=== PATIENT | male | born 1995 | race Caucasian/White ===

== ENCOUNTER 2017-10-13 16:36 | Emergency (ER) | payer BC, SELFPAY ==
[2017-10-13 16:41] VITALS: BP 149/96; PULSE 84; RESP 16; TEMP 36.8; O2SAT 97
--- NOTE | 2017-10-13 16:56 | ED.GENADUL ---
Disposition Clinical Impression: Folliculitis Disposition: HOME Condition: Stable Instructions: Folliculitis (ED) Additional Instructions: Return immediately to the emergency department if you have any new or significant worsening in symptoms including streaking redness up the leg, fever chills, or purulent drainage from the area of infection. Otherwise follow-up with your primary care provider for reassessment in 1 week. Prescriptions: Clindamycin Phosphate [CLINDAMYCIN PHOS 1%] 60 ml TP BID 7 Days #1 lotion Referrals: Dariusz Odonnell [Primary Care Provider] - 1 week (If not improving over the next week please follow-up with your primary care provider for reassessment.) Medical Decision Making - Medical Decision Making Patient presenting to the emergency department for evaluation of possible infection of right lower leg. Patient has a single hair follicle that is inflamed and reddened otherwise is unremarkable. There is no area of significant fluctuance or induration. I feel that this is more folliculitis than actual abscess. Given this patient was placed upon clindamycin twice daily for 1 week and encouraged to return for worsening symptoms otherwise follow-up with his primary care if not improving over the next week. Patient was concerned about a surgery that is coming up in the next couple days and I informed him I did not feel that this small area of affected skin would prohibit his surgery but I did inform him to call the surgeon's office tomorrow morning and inform them of the diagnosis along with treatment. Patient is otherwise nontoxic well in appearance with no systemic symptoms so I feel the patient can be safely discharged for outpatient therapy. After discussion of diagnosis and plan of care with patient patient agreed and stated no further needs, questions, or concerns at this time. History of Present Illness - General Chief complaint: RashLesion Stated complaint: RASH? Time Seen by Provider: 10/13/17 16:56 Source: patient, RN notes reviewed Mode of arrival: ambulatory Limitations: no limitations - History of Present Illness Initial comments: Patient reports for the past 2 days he has noticed a area to his right lower leg that is become reddened. Patient is worried about infection due to a upcoming tonsil surgery and attempted to call his primary care office which they stated that they would not be able to see the patient so patient is coming to the emergency department for evaluation. Patient denies any fever chills, other areas of redness or rash, joint swelling, or other systemic symptoms. Onset/Timin -: days(s) Location: right, lower extremity Consistency: constant Improves with: none Worsens with: none Associated Symptoms: denies other symptoms Treatments Prior to Arrival: none - Related Data Clindamycin Phosphate [CLINDAMYCIN PHOS 1%] 60 ml TP BID 7 Days #1 lotion 10/13/17 Dextroamphetamine/Amphetamine [Adderall Xr 30 mg Capsule] 1 tab-cap PO DAILY #30 tab-cap 10/13/17 Allergies Allergy/AdvReac Type Severity Reaction Status Date / Time No Known Allergies Allergy Unverified 10/13/17 16:45 Review of Systems Constitutional: denies: chills, fever, malaise ENT: denies: throat pain Respiratory: denies: cough, shortness of breath Cardiovascular: denies: chest pain Musculoskeletal: denies: joint swelling Skin: as per HPI, other (Area of redness on right lower leg as stated) Comment: All other systems reviewed and negative Past Medical History - Past Medical History Medical history: no medical history Attention deficit disorder Surgical history: non-contributory Family history: other (Epilepsy) - Social History Smoking status: current everyday smoker Alcohol use: occasionally Drug use: marijuana Living Situation: lives with family General Exam - General Limitations: no limitations General appearance: alert, in no apparent distress - Respiratory Respiratory exam: Absent: respiratory distress - Extremities Exam Extremities exam: Present: full ROM, normal capillary refill. Absent: joint swelling - Neurological Exam Neurological exam: Present: alert, normal gait. Absent: altered - Skin Skin exam: Present: warm, dry, erythema (Patient has a area of erythema with very mild induration noted on the right lateral lower leg with central area of appearance of a hair follicle.) Course Vital Signs - 24 hr 10/13/17 16:41 Temperature 36.8 C Pulse 84 Respiratory 16 Rate Blood Pressure 149/96 Pulse Oximetry 97
== END 2017-10-13 17:02 | disposition home or self-care (01) ==
PROVIDERS: Emergency Provider Physician Assistant; PCP Family Medicine
DX: L73.9 Follicular disorder, unspecified (principal)
CPT/HCPCS: 99283

== ENCOUNTER 2018-02-05 19:40 | Emergency (ER) | payer BC, SELFPAY ==
[2018-02-05 19:44] VITALS: BP 150/110; PULSE 102; RESP 16; TEMP 36.7; O2SAT 103
[2018-02-05 20:01] VITALS: BP 145/86; PULSE 89; PULSE 99; RESP 14; O2SAT 97
--- NOTE | 2018-02-05 20:01 | ED.GENADUL_ITS ---
Discharge Plan Disposition Patient Disposition: HOME Condition: Good Discharge Details Chief Complaint: Headache Clinical Impression: Headache, Syncope Primary Care Provider: Dariusz Odonnell. ED Provider: Oswaldo Kurtz Discharge Instructions Instructions: Syncope (ED), General Headache (ED) Additional Instructions: Rest and take it easy over the weekend. Drink plenty of fluids. Contact primary care for follow-up next week. Return to the emergency department if you develop severe headache, neurologic changes, confusion, fever, further fainting, chest pain, shortness of breath. Referrals: Dariusz Odonnell. [Primary Care Provider] - Medical Decision Making Patient presenting with headache as well as syncope. He has had both previously. Headache is not the worst headache of his life. He has no neurologic symptoms otherwise. He has no fever or stiff neck. He has no chest pain or shortness of breath. He reports being seen here last year for syncope. I have reviewed that note. It was felt to be related to orthostatic hypotension from him limiting food and fluid intake while working out. That has not been the case this time around. EKG from triage is sinus rhythm at 88 with normal intervals and axis. There is normal ST segments. There is no prolonged QT or delta waves. His headache is not the worst headache of his life. He gets them quite frequently. He has not ever had a CAT scan despite onset of headaches a few years ago. We will proceed to get one tonight. However, I do not feel that he needs a lumbar puncture for subarachnoid hemorrhage despite the syncopal event. He is neurologically intact. He does not describe the headache is severe. He has had similar headaches many times in the past. In regards to the syncope his EKG is fine. Will check laboratory studies including his electrolytes. We will give a liter bolus. We will give Reglan and Benadryl for the headache. He does have primary care that he will be referred to for further evaluation of both syncope and headache. Patient's head CT is unremarkable. Laboratory studies unremarkable other than potassium 3.2. I do not think that had anything to do with his syncope. Will replace his potassium orally. He no longer has a headache status post fluids, Reglan, Benadryl. We did discuss possibility of subarachnoid hemorrhage but the unlikelihood of this being the case. He states that he has had way worse headaches than the headache he had tonight. We will have him follow-up with his primary care physician next week. Return to ED for severe headache, fever, neurologic changes, further syncope, other concerns. Medical Records Medical records reviewed: Yes I reviewed the patient's medical records. Lab Data Lab results reviewed: Yes I reviewed the patient's lab results. ECG Data Attestation: I personally reviewed and interpreted this ECG (s) as follows: Interpretation: Sinus rhythm at 88. Normal intervals and axis. Normal QT. No acute ST changes. HPI General Mode of arrival: ambulatory . Date/Time Provider Initiated Documentation: 02/05/18 19:58 . Limitations to Documentation: no limitations . Information obtained by: patient . HPI Narrative: Patient presents to ED with complaint of headache. Patient reports that he has had headaches previously. In fact, he gets them probably a few times a week. He has had headaches worse than this. He came in tonight because he passed out at home. This also is not new. He has passed out previously at least 3 times. He has not had the headaches or the syncope ever really worked up. He was seen here last year when he had a syncopal event. Currently, denies fevers or stiff neck. He has not been ill. He has no chest pain or shortness of breath. He has no neurologic symptoms. He states that after he passed out he got up and drove himself here. Does not really recall driving here very well but was able to do it without difficulty. He has no photophobia or phonophobia. He describes the headache at this time is generalized pressure. He does develop throbbing headaches as well. He has had a headache now on and off for a couple of days. He has mild nausea but no vomiting. He denies injury. He does have a primary care physician but is never seen him to discuss his syncope or his headaches. Related Data Allergies Allergy/AdvReac Type Severity Reaction Status Date / Time No Known Allergies Allergy Unverified 02/05/18 19:48 General Stated Complaint: Headache DARCY: 3 Review of Systems Constitutional Denies chills, Denies fatigue, Denies fever(s), Reports headache(s), Denies malaise and Denies weakness Eyes Denies blurry vision, Denies change in vision, Denies diplopia, Denies eye pain and Denies photophobia ENT Denies vertigo, Denies dizziness, Denies otalgia, Denies facial pain, Reports headache(s), Denies neck pain and Denies sore throat Cardiovascular Denies chest pain at rest, Denies chest pain with activity, Denies diaphoresis, Reports syncope, Denies rapid heart rate, Denies pedal edema, Denies edema, Denies leg edema, Denies dyspnea and Denies dyspnea on exertion Respiratory Denies cough, Denies dyspnea and Denies dyspnea on exertion Gastrointestinal Denies abdominal pain, Denies diarrhea, Reports nausea and Denies vomiting Genitourinary Denies hematuria and Denies flank pain Musculoskeletal Denies abnormal gait, Denies back pain, Denies myalgias, Denies arthralgias, Denies neck pain, Denies numbness and Denies tingling Integumentary/Breasts Denies rash and Denies wounds Neurologic Denies abnormal movements, Denies abnormal speech, Denies abnormal gait, Denies confusion, Denies vertigo, Denies dizziness, Reports syncope, Reports headache(s ), Denies focal weakness, Denies numbness, Denies tingling, Denies paresthesias and Denies weakness Psychiatric Denies confusion Endocrine Denies fatigue PFSH BEHAVIORAL PROBLEMS/IEP DEPRESSION/ANXIETY Family History Mother Essential hypertension Father Epilepsy Essential hypertension Hyperlipidemia Sister Thyroid disease Sister Depression Sister Asthma Sister No problems noted. FAMILY HISTORY Essential hypertension Depression ADHD (attention deficit hyperactivity disorder) Nasal septoplasty (10/15/17) Family History Mother Essential hypertension Father Epilepsy Essential hypertension Hyperlipidemia Sister Thyroid disease Sister Depression Sister Asthma Sister No problems noted. FAMILY HISTORY Essential hypertension Depression ADHD (attention deficit hyperactivity disorder) Medical History BEHAVIORAL PROBLEMS/IEP DEPRESSION/ANXIETY Social History Smoking/Tobacco Use Status: Former Tobacco Use Surgical History Nasal septoplasty (10/15/17) Social History Smoking/Tobacco Use Status: Current every day substance use type: marijuana Exam Const General: cooperative, comfortable and no acute distress Orientation: alert and oriented x3 [facility] Head: normocephalic and atraumatic Mouth: moist mucous membranes Eyes Conjunctivae: conjunctivae normal Pupils: PERRL EOM: EOM intact bilaterally Neck Neck: full ROM, no lymphadenopathy, trachea midline and supple Resp Effort & Inspection: normal respiratory effort Auscultation: clear to auscultation bilaterally Cardio Rate: regular rate Rhythm: regular rhythm Heart Sounds: S1 normal and S2 normal Pulses: normal peripheral pulses GI Inspection: non-distended Palpation: soft, not firm, no guarding and nontender Skin General skin exam: no erythema Rashes: no rashes Trauma: no lacerations or abrasions Other: warm and dry Neuro General: alert, oriented x3, no focal motor deficits and CN's II-XI intact bilaterally Cognition: normal cognition Speech: speech normal Sensory Exam: no sensory deficits noted Extrem General: normal to inspection, full ROM and no clubbing, cyanosis or edema Psych Appearance: grossly normal Mental Status: mental status grossly normal Affect: normal affect Attitude: cooperative Course Vital Signs Temperature 98.1 F 02/05/18 19:44 Pulse 102 H 02/05/18 19:44 Respiratory Rate 16 02/05/18 19:44 Blood Pressure 150/110 H 02/05/18 19:44 Pulse Oximetry 103 H 02/05/18 19:44 Temperature 98.1 F 02/05/18 19:44 Temperature Source Skin 02/05/18 19:44 Pulse 102 H 02/05/18 19:44 Respiratory Rate 16 02/05/18 19:44 Respiratory Effort Non-Labored 02/05/18 19:46 Blood Pressure 150/110 H 02/05/18 19:44 Pulse Oximetry 103 H 02/05/18 19:44 Oxygen Delivery Method Room Air 02/05/18 19:44 Oxygen Flow Rate 0 02/05/18 19:44 Pain Level 5 02/05/18 19:44
--- NOTE | 2018-02-05 20:15 | DI.CT_ITS ---
SYMPTOM/DIAGNOSIS: HEADACHE NONCONTRAST HEAD CT: No intracranial hemorrhage, mass or infarct is seen. There is no evidence of skull fracture. The visualized portions of the sinuses and mastoid air cells appear clear. IMPRESSION: Negative head CT
[2018-02-05 20:16] VITALS: BP 133/86; PULSE 83; PULSE 90; RESP 23; O2SAT 96
[2018-02-05] MEDS: Normal Saline 1,000 ML 1000 ML IV (20:28)
[2018-02-05] MEDS: diphenhydrAMINE 50 MG/ML VIAL 25 MG IVP (20:30)
[2018-02-05] MEDS: Metoclopramide 10 MG/2 ML VIAL IVP (20:30)
[2018-02-05 20:31] VITALS: BP 131/73; PULSE 90; PULSE 96; RESP 22; O2SAT 96
[2018-02-05 20:31] LABS: Abs Immature Grans 0.01 k/cumm (0.0-0.09); Absolute Basophil Count 0.02 k/cumm (0.0-0.2); Absolute Eosinophil Count 0.01 k/cumm (0.0-0.7); Absolute Lymphocyte Count 2.68 k/cumm (1.2-3.4); Absolute Monocyte Count 0.54 k/cumm (0.11-0.7); Absolute Neutrophil Count 4.52 k/cumm (1.2-6.7); Basophils % 0.3; Eosinophils % 0.1; HCT 45.7 % (40.0-50.0); HGB 15.4 g/dL (13.5-17.5); Immature Grans % 0.1; Lymphocytes % 34.4; Mean Corp. HGB Concentration 33.7 g/dL (32.0-36.0); Mean Corpuscular Hemoglobin 27.5 pg (27.0-33.0); Mean Corpuscular Volume 81.8 fL (80-95); Mean Platelet Volume 11.1 fL (8.0-11.0); Monocytes % 6.9; Neutrophils % 58.2; Platelet Count 223 x1000/uL (130-400); RBC 5.59 m/cumm (4.50-6.00); RBC Distribution Width 13.2 % (11.8-14.1); White Blood Cell Count 7.78 k/cumm (4.4-10.8)
[2018-02-05 20:56] LABS: Anion Gap 11.9 mmol/L (3-11); BUN 13 mg/dL (7-18); CO2 27.1 mmol/L (21.0-32.0); CREATININE 1.06 mg/dL (0.70-1.30); Calcium 9.4 mg/dL (8.5-10.1); Chloride 105 mmol/L (98-107); Glucose 102 mg/dL (70-100); Potassium 3.2 mmol/L (3.5-5.1); Sodium 144 mmol/L (136-145)
--- NOTE | 2018-02-05 21:10 | DI.VRAD_ITS ---
EXAM: CT Head Without Contrast EXAM DATE/TIME: 02/05/2018 8:20 PM CLINICAL HISTORY: 22 years old, male; Pain; Headache; Headache not specified TECHNIQUE: Axial computed tomography images of the head/brain without contrast. All CT scans at this facility use at least one of these dose optimization techniques: automated exposure control; mA and/or kV adjustment per patient size (includes targeted exams where dose is matched to clinical indication); or iterative reconstruction. Coronal and sagittal reformatted images were created and reviewed. COMPARISON: No relevant prior studies available. FINDINGS: Brain: No hemorrhage. No significant white matter disease. No edema. Ventricles: No ventriculomegaly. Bones/joints: No acute fracture. Sinuses: Unremarkablel as visualized. No acute sinusitis. Mastoid air cells: Unremarkable as visualized. No mastoid effusion. Soft tissues: Unremarkable. IMPRESSION: No acute focal intracranial lesions. Dictated and Authenticated by: Miles Dao MD. Ordering:MERY BHAGAT MD
[2018-02-05] MEDS: Potassium Chloride 20 MEQ TABCR 40 MEQ PO (21:20)
[2018-02-05 21:23] VITALS: BP 130/80; PULSE 65; RESP 16; O2SAT 97
== END 2018-02-05 21:52 | disposition home or self-care (01) ==
PROVIDERS: Emergency Provider Emergency Medicine; PCP Family Medicine
DX: R51 Headache (principal); R55 Syncope and collapse; E87.6 Hypokalemia; R11.0 Nausea
CPT/HCPCS: 36415; 80048; 93005; 96361; 96374; 96375; 99285; 70450; 83735; 85025; 93010; J1200; J2765

== ENCOUNTER 2018-09-26 11:54 | Emergency (ER) | payer BC, SELFPAY ==
[2018-09-26 12:01] VITALS: BP 163/77; PULSE 85; RESP 16; TEMP 37.1; O2SAT 99
--- NOTE | 2018-09-26 12:26 | W.ED.GENAD ---
Discharge Plan Disposition Patient Disposition: HOME Condition: Stable Discharge Details Chief Complaint: Nk/Back Pain Clinical Impression: Low back pain Primary Care Provider: Dariusz Odonnell ED Provider: Elton Moore Home Meds and New Rx's Prescriptions: New cyclobenzaprine 10 mg tablet 10 mg PO TID PRN (Reason: muscle spasm) Qty: 20 RF: 0 No Action dextroamphetamine-amphetamine [Adderall XR] 20 mg capsule,extended release 24hr 20 mg PO DAILY MDD 1 Qty: 30 RF: 0 dextroamphetamine-amphetamine [Adderall XR] 30 mg capsule,extended release 24hr 30 mg PO QAM MDD 1 cap Qty: 30 RF: 0 Discharge Instructions Instructions: Low Back Strain (ED) Additional Instructions: you can take 1000mg tylenol and 600mg ibuprofen every 6 hours for pain if you take the cyclobenzaprine do not drink alcohol or drive as it can make you drowsy follow up with your primary care provider if symptoms continue in 2 weeks if you have high fevers, weakness, difficulty urinating or severe worsening pain return to the emergency department Stand Alone Forms: Physical Therapy Referral Medical Decision Making 23 yo male who denies chronic medical problems and denies any ivdu who comes in with cc of low back pain for over a week. Denies any falls or trauma. he does do intermittent heavy lifting at work but denies any known injury. Denies fevers, weakness, difficulty urinating. He has pain in right lower back just lateral to midline, has increased pain with bending forward, no saddle anesthesia. Has no findings to suggest cauda equina and no infectious symptoms and no ivdu so unlikely sea. Suspect muscle strain vs spasm vs possible disc herniation. Will have him start muscle relaxers, and see physical therapy and advised to f/u with pcp if not better in 2 weeks and return precautions given Differential Diagnosis strain, muscle spasm, disc herniation HPI General Mode of arrival: ambulatory. Date/Time Provider Initiated Documentation: 09/26/18 11:56. Limitations to Documentation: no limitations. Information obtained by: patient. History of Present Illness 23 year old M presents to the emergency department with the chief complaint of low back pain, described as moderate, Quality is described as stabbing, and is localized to the back. Patient reports no radiation. Patient started experiencing this day(s) (7) and it has been constant. No relieving factors improve symptom(s), No exacerbating factors reported . Patient did receive the following treatments prior to arrival, none Related Data Home Medications Medication Instructions Recorded Confirmed dextroamphetamine-amphetamine ER 20 mg PO DAILY #30 cap MDD 1 08/30/18 09/26/18 20 mg 24hr capsule,extend release dextroamphetamine-amphetamine ER 30 mg PO QAM #30 cap MDD 1 cap 08/30/18 09/26/18 30 mg 24hr capsule,extend release cyclobenzaprine 10 mg PO TID PRN #20 tab 09/26/18 Previous Rx's Medication Instructions Recorded dextroamphetamine-amphetamine ER 20 mg PO DAILY #30 cap MDD 1 08/30/18 20 mg 24hr capsule,extend release dextroamphetamine-amphetamine ER 30 mg PO QAM #30 cap MDD 1 cap 08/30/18 30 mg 24hr capsule,extend release cyclobenzaprine 10 mg PO TID PRN #20 tab 09/26/18 Allergies Allergy/AdvReac Type Severity Reaction Status Date / Time No Known Allergies Allergy Verified 09/26/18 12:04 General Stated Complaint: Nk/Back Pain DARCY: 4 Review of Systems Review of Systems All systems reviewed & are unremarkable except as noted in HPI and below Constitutional Denies chills, Denies fever(s) and Denies weakness Cardiovascular Denies chest pain and Denies dyspnea Respiratory Denies cough and Denies dyspnea Gastrointestinal Denies abdominal pain, Denies nausea and Denies vomiting Integumentary/Breasts Denies rash Neurologic Denies weakness Endocrine Denies heat intolerance [facility] Medical History (Updated 09/01/18 @ 14:46 by Dariusz Odonnell) Attention deficit hyperactivity disorder (ADHD), 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) BEHAVIORAL PROBLEMS/IEP Cluster headache (Chronic 06/18/17) DEPRESSION/ANXIETY Deviated nasal septum (Chronic 08/12/17) Recurrent syncope (Chronic) Surgical History Nasal septoplasty (10/15/17) Social History Smoking/Tobacco Use Status: Current every day Drug use: Occasionally Substance use type: marijuana Do you feel safe in your relationship?: Yes Exam Const General: no acute distress Orientation: alert HENMT Head: normal to inspection Ears: external ears normal General nose exam: external nose normal Mouth: moist mucous membranes Eyes General: appearance normal, both eyes and all related structures Neck Neck: normal visual inspection Resp Effort & Inspection: normal respiratory effort and able to speak in complete sentences Cardio Rate: regular rate Back/Spine/Pelvis Back: no CVA tenderness and No erythema Skin General skin exam: no rashes or lesions noted Neuro General: alert and oriented x3 Extrem General: normal to inspection Psych Mental Status: mental status grossly normal Course Vital Signs Temperature 37.1 C 09/26/18 12:01 Pulse 85 09/26/18 12:01 Respiratory Rate 16 09/26/18 12:01 Blood Pressure 163/77 H 09/26/18 12:01 Pulse Oximetry 99 09/26/18 12:01 Temperature 37.1 C 09/26/18 12:01 Temperature Source Skin 09/26/18 12:01 Pulse 85 09/26/18 12:01 Respiratory Rate 16 09/26/18 12:01 Respiratory Effort Non-Labored 09/26/18 12:01 Blood Pressure 163/77 H 09/26/18 12:01 Blood Pressure Position Sitting 09/26/18 12:01 Pulse Oximetry 99 09/26/18 12:01 Oxygen Delivery Method Room Air 09/26/18 12:01 Oxygen Flow Rate 0 09/26/18 12:01 Pain Level 7 09/26/18 12:01
[2018-09-26 12:30] VITALS: BP 147/60; PULSE 85; RESP 16; TEMP 37.1; O2SAT 99
== END 2018-09-26 12:34 | disposition home or self-care (01) ==
PROVIDERS: Emergency Provider Emergency Medicine; PCP Family Medicine
DX: M54.5 Low back pain (principal)
CPT/HCPCS: 99283

== ENCOUNTER 2018-11-02 17:05 | Emergency (ER) | payer BC, SELFPAY ==
[2018-11-02 17:08] VITALS: BP 154/87; PULSE 84; RESP 18; TEMP 37.1; O2SAT 98
--- NOTE | 2018-11-02 17:20 | ED.GENADUL_ITS ---
Discharge Plan Disposition Patient Disposition: HOME Condition: Stable Discharge Details Chief Complaint: Vascular Clinical Impression: Leg pain, right Primary Care Provider: Dariusz Odonnell ED Provider: Elton Moore Home Meds and New Rx's Prescriptions: Continued dextroamphetamine-amphetamine [Adderall XR] 20 mg capsule,extended release 24hr 20 mg PO DAILY MDD 1 Qty: 30 RF: 0 dextroamphetamine-amphetamine [Adderall XR] 30 mg capsule,extended release 24hr 30 mg PO QAM MDD 1 cap Qty: 30 RF: 0 Discharge Instructions Instructions: Leg Pain (ED) Additional Instructions: call radiology tomorrow to set up an appointment time for your ultrasound follow up if symptoms continue with your primary care provider within 1-2 weeks if you have high fevers, difficulty breathing or inability to urinate return to the emergency department Stand Alone Forms: Work Release Medical Decision Making 23 yo male comes in with right thigh discomfort and shooting sensation down back of the right leg for 2 days. he flew to [place] this weekend and symptoms started yesterday. no difficulty urinating, weakness and has normal gait. Has no leg swelling, calf tenderness, intact distal sensation and no saddle anesthesia and denies fevers or ivdu, no findings on exam or hx to suggest cauda equina or sea at this time. No trauma so do not feel xrays or ct indicated. Has normal vascular exam so doubt dissection. His pain is over the right lateral mid calf without erythema or other signs of infection. I suspect muscle spassm vs strain,sciatica or possible peripheral neuropathy. He is concered for dvt and would like an u/s but unfortunately no tech on at this time. I do not feel he requires transfer to [facility] this done now, and will have him return tomorrow to have it done. I also advised f/u with pcp and return precautions given Differential Diagnosis sciatica, muscle spasm HPI General Mode of arrival: ambulatory . Date/Time Provider Initiated Documentation: 11/02/18 17:07 . Limitations to Documentation: no limitations . Information obtained by: patient . Related Data Home Medications Medication Instructions Recorded Confirmed dextroamphetamine-amphetamine ER 20 mg PO DAILY #30 cap MDD 1 10/04/18 11/02/18 20 mg 24hr capsule,extend release dextroamphetamine-amphetamine ER 30 mg PO QAM #30 cap MDD 1 cap 10/04/18 11/02/18 30 mg 24hr capsule,extend release Previous Rx's Medication Instructions Recorded dextroamphetamine-amphetamine ER 20 mg PO DAILY #30 cap MDD 1 10/04/18 20 mg 24hr capsule,extend release dextroamphetamine-amphetamine ER 30 mg PO QAM #30 cap MDD 1 cap 10/04/18 30 mg 24hr capsule,extend release Allergies Allergy/AdvReac Type Severity Reaction Status Date / Time No Known Allergies Allergy Verified 11/02/18 17:15 General Stated Complaint: Vascular DARCY: 3 Review of Systems Review of Systems All systems reviewed & are unremarkable except as noted in HPI and below Constitutional Denies chills, Denies fever(s) and Denies weakness ENT Denies change in voice Cardiovascular Denies chest pain and Denies dyspnea Respiratory Denies cough and Denies dyspnea Gastrointestinal Denies abdominal pain, Denies nausea and Denies vomiting Neurologic Denies weakness [facility] Medical History (Updated 09/01/18 @ 14:46 by Dariusz Odonnell) Attention deficit hyperactivity disorder (ADHD), 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 well BEHAVIORAL PROBLEMS/IEP Cluster headache (Chronic 06/18/17) DEPRESSION/ANXIETY Deviated nasal septum (Chronic 08/12/17) Recurrent syncope (Chronic) Surgical History Nasal septoplasty (10/15/17) [facility] Social History Smoking/Tobacco Use Status: Current every day Tobacco Type: e-cigarettes Alcohol Intake: current Alcohol Intake frequency: holidays/special occasions only Drug use: Occasionally Substance use type: marijuana Do you feel safe at home: Yes Do you feel safe in your relationship?: Yes Exam Const General: no acute distress Orientation: alert HENMT Head: normal to inspection Ears: external ears normal General nose exam: external nose normal Mouth: moist mucous membranes Eyes General: appearance normal, both eyes and all related structures Neck Neck: normal visual inspection Resp Effort & Inspection: normal respiratory effort and able to speak in complete sentences Cardio Rate: regular rate Skin General skin exam: no rashes or lesions noted Neuro General: alert and oriented x3 Extrem General: normal to inspection Psych Mental Status: mental status grossly normal Course Vital Signs Temperature 37.1 C 11/02/18 17:08 Pulse 84 11/02/18 17:08 Respiratory Rate 18 11/02/18 17:08 Blood Pressure 154/87 H 11/02/18 17:08 Pulse Oximetry 98 11/02/18 17:08 Temperature 37.1 C 11/02/18 17:08 Temperature Source Temporal Artery Scan 11/02/18 17:08 Pulse 84 11/02/18 17:08 Respiratory Rate 18 11/02/18 17:08 Respiratory Effort Non-Labored 11/02/18 17:13 Blood Pressure 154/87 H 11/02/18 17:08 Blood Pressure Position Sitting 11/02/18 17:08 Pulse Oximetry 98 11/02/18 17:08 Oxygen Delivery Method Room Air 11/02/18 17:08 Oxygen Flow Rate 0 11/02/18 17:08 Pain Level 4 11/02/18 17:08
--- NOTE | 2018-11-05 13:44 | NUR.NOTE ---
Nursing Note: Radiology dept. called this morning stating that they have not been able to get in touch with the patient to schedule an outpatient US. Luisana Srivastava.
== END 2018-11-02 17:30 | disposition home or self-care (01) ==
LOC: ER 17:25
PROVIDERS: Emergency Provider Emergency Medicine; PCP Family Medicine
DX: M79.661 Pain in right lower leg (principal)
CPT/HCPCS: 99282

== ENCOUNTER 2019-04-18 17:05 | Emergency (ER) | payer BC, SELFPAY ==
[2019-04-18 17:13] VITALS: BP 143/95; PULSE 90; RESP 18; TEMP 36.9; O2SAT 97
--- NOTE | 2019-04-18 17:23 | ED.GENADUL_ITS ---
Discharge Plan Disposition Patient Disposition: HOME Condition: Stable Discharge Details Chief Complaint: Cellulitis Clinical Impression: Abscess Primary Care Provider: Dariusz Odonnell ED Provider: Lillian Aguayo Home Meds and New Rx's Prescriptions: New mupirocin 2 % ointment 1 applic TP TID Qty: 15 RF: 0 doxycycline hyclate 100 mg capsule 100 mg PO BID Qty: 20 RF: 0 No Action dextroamphetamine-amphetamine [Adderall XR] 20 mg capsule,extended release 24hr 20 mg PO DAILY MDD 1 Qty: 30 RF: 0 dextroamphetamine-amphetamine [Adderall XR] 30 mg capsule,extended release 24hr 30 mg PO QAM MDD 1 cap Qty: 30 RF: 0 Discharge Instructions Instructions: Abscess (ED) Additional Instructions: Wash area with soap and water once or twice daily. Warm compresses to the area. Apply topical antibiotic ointment 3 times a day as discussed. Use antibiotic as prescribed by mouth. Recheck if not improving in the next week. Return for any increasing redness, swelling, pain or worsening as discussed. Make reevaluation appointment with PCP next week. Medical Decision Making This is a 23-year-old patient presenting for concerns of a right cheek wound which is been present for approximately 2 weeks. No prior injury or trauma to the site. Patient reports area of redness noted at the cheek which after a few weeks formed a pustule which he drained, area reaccumulated with fluid and he drained it again. Patient is now reporting redness surrounding but no concern of retained pus. Denies fever, chills or ill feeling. Patient appears well. Vital signs reviewed and stable. Discussed incision and drainage versus antibiotic treatment. I feel antibiotic treatment is most appropriate at this time given patient's clinical presentation and lack of fluctuation of the right cheek. Will treat with Bactroban as well as doxycycline. Counseled regarding use of these medications. Counseled regarding management of wound. Patient agrees with plan of care. Encouraged follow-up with PCP. Encourage return for any increased redness, swelling or worsening symptoms. Patient reports understanding. The patient was stable and requested discharge. Prior to discharge, my usual and customary return precautions were reviewed with the patient - this included follow-up instructions and reasons to return to the Emergency Department if conditions worsens, does not improve as expected, or other new concerns arise. HPI General Date/Time Provider Initiated Documentation: 04/18/19 17:14 . HPI Narrative: Is a 23-year-old patient presenting for 2 weeks of redness to the right cheek. Patient reports he had a area of redness which was notable which came to a head. Patient popped it, purulence drained. Area reaccumulated, he popped it again. Patient reports of burning at this time and persistent redness. Patient denies any ill feeling, fevers, chills, nausea, vomiting. Patient did have upper respiratory symptoms a few weeks ago has entirely improved. Patient concerned with the possibility of cellulitis of the right cheek. History of cellulitis and infections in the skin in the past. Again no ill feeling at this time. No injury or trauma to the face. No dental pain, sinus pain or ear pain. Related Data Home Medications Medication Instructions Recorded Confirmed dextroamphetamine-amphetamine ER 20 mg PO DAILY #30 cap MDD 1 04/08/19 04/18/19 20 mg 24hr capsule,extend release dextroamphetamine-amphetamine ER 30 mg PO QAM #30 cap MDD 1 cap 04/08/19 04/18/19 30 mg 24hr capsule,extend release doxycycline hyclate 100 mg PO BID #20 cap 04/18/19 mupirocin 1 applic TP TID #15 gm 04/18/19 Previous Rx's Medication Instructions Recorded dextroamphetamine-amphetamine ER 20 mg PO DAILY #30 cap MDD 1 04/08/19 20 mg 24hr capsule,extend release dextroamphetamine-amphetamine ER 30 mg PO QAM #30 cap MDD 1 cap 04/08/19 30 mg 24hr capsule,extend release doxycycline hyclate 100 mg PO BID #20 cap 04/18/19 mupirocin 1 applic TP TID #15 gm 04/18/19 Allergies Allergy/AdvReac Type Severity Reaction Status Date / Time No Known Allergies Allergy Verified 04/18/19 17:15 General Stated Complaint: Cellulitis DARCY: 4 Review of Systems All systems reviewed & are unremarkable except as noted in HPI and below Constitutional Constitutional: Denies chills, Denies fatigue, Denies fever(s), Denies headache(s) and Denies malaise ENT Ears, Nose, Mouth, and Throat: Denies vertigo, Denies dizziness, Denies otalgia, Denies headache(s), Denies nasal congestion, Denies nasal discharge, Denies tinnitus, Denies sinus pain, Denies sinus pressure, Denies sore throat and Denies throat swelling Respiratory Respiratory: Denies cough Integumentary/Breasts Skin/Breast: Reports erythema and Reports skin swelling Neurologic Neurologic: Denies vertigo, Denies dizziness and Denies headache(s) Endocrine Endocrine: Denies fatigue Allergic/Immunologic Allergic/Immunologic: Denies throat swelling [facility] Medical History Attention deficit hyperactivity disorder (ADHD), 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 well BEHAVIORAL PROBLEMS/IEP Cluster headache (Chronic 06/18/17) DEPRESSION/ANXIETY Deviated nasal septum (Chronic 08/12/17) Recurrent syncope (Chronic) Surgical History Nasal septoplasty (10/15/17) [facility] Social History Smoking/Tobacco Use Status: Current every day Tobacco Type: e-cigarettes Alcohol Intake: current Alcohol Intake frequency: holidays/special occasions only Drug use: Occasionally Substance use type: marijuana Do you feel safe at home: Yes Do you feel safe in your relationship?: Yes Exam Narrative Exam Narrative: CONST: Healthy appearing patient, in no acute distress. Well hydrated. Alert and oriented. HENMT: Head nomocephalic, normal to inspection. Atraumatic. Hearing grossly normal. Right cheek with area of mild induration with surrounding erythema approximately 1 cm x 1 cm. No sinus pain with palpation. EYES: General normal appearance. Alignment normal. Eyelids normal. Conjunctiva normal. NECK: Normal visual inspection. FROM. Trachea midline. No Midline tenderness. Cervical lymphadenopathy present SKIN: Normal. Dry. No rashes. See above NEURO: Alert and awake. Speech clear. PSYCH: Normal affect. Cooperative. Course Vital Signs Vital signs: Vital Signs Temperature 36.9 C 04/18/19 17:13 Pulse 90 04/18/19 17:13 Respiratory Rate 18 04/18/19 17:13 Blood Pressure 143/95 H 04/18/19 17:13 Pulse Oximetry 97 04/18/19 17:13 Temperature 36.9 C 04/18/19 17:13 Temperature Source Skin 04/18/19 17:13 Pulse 90 04/18/19 17:13 Respiratory Rate 18 04/18/19 17:13 Respiratory Effort Non-Labored 04/18/19 17:15 Blood Pressure 143/95 H 04/18/19 17:13 Blood Pressure Position Sitting 04/18/19 17:13 Pulse Oximetry 97 04/18/19 17:13 Oxygen Delivery Method Room Air 04/18/19 17:13 Oxygen Flow Rate 0 04/18/19 17:13 Pain Level 0 04/18/19 17:13
== END 2019-04-18 17:28 | disposition home or self-care (01) ==
PROVIDERS: Emergency Provider Physician Assistant; PCP Family Medicine
DX: L02.01 Cutaneous abscess of face (principal)
CPT/HCPCS: 99283

== ENCOUNTER 2019-05-03 15:45 | Emergency (ER) | payer BC, SELFPAY ==
[2019-05-03 15:50] VITALS: BP 155/90; PULSE 90; RESP 16; TEMP 36.6; O2SAT 96
--- NOTE | 2019-05-03 16:22 | W.ED.GENAD ---
Discharge Plan Disposition Patient Disposition: HOME Condition: Good Discharge Details Chief Complaint: EyeProblem Clinical Impression: Eye foreign body Primary Care Provider: Dariusz Odonnell ED Provider: Raquel Fu Home Meds and New Rx's Prescriptions: Continued dextroamphetamine-amphetamine [Adderall XR] 20 mg capsule,extended release 24hr 20 mg PO DAILY MDD 1 Qty: 30 RF: 0 dextroamphetamine-amphetamine [Adderall XR] 30 mg capsule,extended release 24hr 30 mg PO QAM MDD 1 cap Qty: 30 RF: 0 Discharge Instructions Instructions: Eye Foreign Body (ED) Additional Instructions: Monitor on for new or worsening symptoms including return with redness, discharge, discomfort, visual changes. If you develop these or other new/worsening symptoms please seek care urgently once again. Do not use those drops again in your eyes I am concerned that the foreign body may have come from the bottle. Follow-up with primary care as needed. Stand Alone Forms: Work Release Referrals: Dariusz Odonnell [Primary Care Provider] - Discharge Data Discharge Date/Time-TO BE ENTERED AT DEPARTURE: 05/03/19 16:41 Medical Decision Making Patient is a pleasant 23-year-old gentleman presenting today with chief complaint of foreign body sensation to the right eye. He reports around lunchtime today, while at work, a coworker noted the right eye to be erythematous. He did not have any symptoms associated with this. Does not wear contact lenses. Denies any pain in the eye, visual changes. No fevers or chills. No discharge from the eye. States that once this was brought to his attention, he used an eyedrop and had feeling of foreign body in the eye. This is resolved since being here. The erythema has largely resolved. He is currently asymptomatic. Denies the eye with fluorescein, no foreign body or abrasion was noted. Advised that with the resolution of his symptoms, he may have had a small foreign body that is since resolved. However, concern is no evidence of fluorescein uptake I do not feel that antibiotics is appropriate. We discussed supportive care. Advise follow-up with primary care in 3 days if not improved. All his questions and concerns were addressed and is agreement this plan. HPI General Mode of arrival: ambulatory. Date/Time Provider Initiated Documentation: 05/03/19 16:10. Limitations to Documentation: no limitations. Information obtained by: patient and RN notes reviewed. History of Present Illness 23 year old M presents to the emergency department with the chief complaint of right eye FB sensation, described as mild, with intensity rated at 2. Quality is described as other (FB sensation), and is localized to the eyes. Patient reports no radiation. Patient started experiencing this hour(s) and it has been now resolved. No relieving factors improve symptom(s), Other factors that worsen symptoms (came on after putting drops into eyes) . Patient notes no other symptoms.. Patient did receive the following treatments prior to arrival, none Related Data Home Medications Medication Instructions Recorded Confirmed dextroamphetamine-amphetamine ER 20 mg PO DAILY #30 cap MDD 1 04/08/19 05/03/19 20 mg 24hr capsule,extend release dextroamphetamine-amphetamine ER 30 mg PO QAM #30 cap MDD 1 cap 04/08/19 05/03/19 30 mg 24hr capsule,extend release Previous Rx's Medication Instructions Recorded dextroamphetamine-amphetamine ER 20 mg PO DAILY #30 cap MDD 1 04/08/19 20 mg 24hr capsule,extend release dextroamphetamine-amphetamine ER 30 mg PO QAM #30 cap MDD 1 cap 04/08/19 30 mg 24hr capsule,extend release Allergies Allergy/AdvReac Type Severity Reaction Status Date / Time No Known Allergies Allergy Verified 05/03/19 15:53 General Stated Complaint: EyeProblem DARCY: 4 Review of Systems Constitutional Constitutional: Reports as per HPI, Denies chills, Denies fatigue, Denies fever(s) and Denies headache(s) Eyes Eyes: Reports as per HPI ENT Ears, Nose, Mouth, and Throat: Denies headache(s) Cardiovascular Cardiovascular: Reports as per HPI, Denies chest pain and Denies lightheadedness Respiratory Respiratory: Denies cough Integumentary/Breasts Skin/Breast: Reports as per HPI, Denies rash, Denies skin pain and Denies skin swelling Neurologic Neurologic: Denies headache(s) and Denies radicular pain Endocrine Endocrine: Denies fatigue [facility] Medical History Attention deficit hyperactivity disorder (ADHD), 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 well BEHAVIORAL PROBLEMS/IEP Cluster headache (Chronic 06/18/17) DEPRESSION/ANXIETY Deviated nasal septum (Chronic 08/12/17) Recurrent syncope (Chronic) Surgical History Nasal septoplasty (10/15/17) [facility] Social History Smoking/Tobacco Use Status: Current every day Tobacco Type: e-cigarettes Alcohol Intake: current Alcohol Intake frequency: holidays/special occasions only Drug use: Occasionally Substance use type: marijuana Do you feel safe at home: Yes Do you feel safe in your relationship?: Yes Exam Const General: cooperative, healthy appearing, comfortable, no acute distress, well developed and well groomed Nutritional Appearance: average body habitus and well nourished Orientation: alert, awake and oriented x3 HENMT Head: normal to inspection, normocephalic and atraumatic Ears: hearing grossly normal bilaterally and external ears normal General nose exam: external nose normal and nares normal Face and sinus: normal facial exam and face symmetric Mouth: oral mucosae normal, lip normal and moist mucous membranes Eyes Visual Guy: normal visual guy by confrontation Alignment and Position: alignment normal and position normal Periorbital: periorbital findings normal Eyelids: eyelids normal Conjunctivae: conjunctival abnormality right (slightly pink) Sclera: sclerae normal Cornea: corneas normal Pupils: PERRL and normal by confrontation EOM: EOM intact bilaterally Neck Neck: normal visual inspection and no lymphadenopathy Resp Effort & Inspection: normal respiratory effort, able to speak in complete sentences and no respiratory distress Skin General skin exam: no rashes or lesions noted Neuro General: alert, awake and oriented x3 Cranial Nerves: CN's II-XI intact bilaterally Cognition: normal cognition Speech: speech normal Gait: normal gait Psych Appearance: grossly normal and well kempt Mental Status: mental status grossly normal Speech and Movement: speech and movement normal Course Vital Signs Vital signs: Vital Signs Temperature 36.6 C 05/03/19 15:50 Pulse 90 05/03/19 15:50 Respiratory Rate 16 05/03/19 15:50 Blood Pressure 155/90 H 05/03/19 15:50 Pulse Oximetry 96 05/03/19 15:50 Temperature 36.6 C 05/03/19 15:50 Temperature Source Skin 05/03/19 15:50 Pulse 90 05/03/19 15:50 Respiratory Rate 16 05/03/19 15:50 Respiratory Effort Non-Labored 05/03/19 15:50 Blood Pressure 155/90 H 05/03/19 15:50 Blood Pressure Position Sitting 05/03/19 15:50 Pulse Oximetry 96 05/03/19 15:50 Oxygen Delivery Method Room Air 05/03/19 15:50 Oxygen Flow Rate 0 05/03/19 15:50 Pain Level 2 05/03/19 15:50
== END 2019-05-03 16:42 | disposition home or self-care (01) ==
PROVIDERS: Emergency Provider Physician Assistant; PCP Family Medicine
DX: H57.89 Other specified disorders of eye and adnexa (principal)
CPT/HCPCS: 99283